=== PATIENT | male | born 1960 | race African-American/Black ===

== ENCOUNTER 2020-08-04 10:42 | Emergency (ER) | payer OTHER ==
[~2020-08-04] VITALS: Ht 175.3 cm; Wt 76.2 kg
--- OUTSIDE RECORDS SUMMARY | 2020-08-04 11:06 | XMS REPORT | Continuity of Care Document ---
Author Author [facility] t Organization [facility] Address [address] [place] [address] Phone Unavailable Care Team Providers Care Burr Bench Operator Name Role Phone ELISSA SIERRA Unavailable TALON DUMONT Attphys Unavailable ROOTTaz Attphys Unavailable TALON DUMONT Admphys Unavailable ROOTTaz Admphys Unavailable Payers Payer Name Policy Type Policy Number Effective Date Expiration Date S ource Problems This patient has no known problems. Allergies, Adverse Reactions, Alerts Allergy Name Allergy Type Status Severity Reaction(s) Onset Date Inacti ve Date Treating Clinician Comments Source peanut FA Active [place] 2020-06-11 00:00:00 [facility] aspirin DA Active [place] 2020-06-11 00:00:00 [facility] peanut FA Active [place] 2017-06-05 00:00:00 [facility] aspirin DA Active [place] 2017-06-05 00:00:00 [facility] Social History Social Habit Start Date Stop Date Quantity Comments Source Sex Assigned At [facility] Medications This patient has no known medications. Procedures This patient has no known procedures. Encounters Start Date/Time End Date/Time [facility] ID Source 2019-06-12 08:32:41 Outpatient [facility] [id number] [facility] 2017-04-22 14:01:00 Inpatient [facility] MED [id number] [facility] 2019-08-05 01:13:00 2019-08-05 01:13:00 Emergency E [facility] [id number] [facility] 2019-05-25 17:21:00 2019-05-25 17:21:00 Emergency E [facility] [id number] [facility] 2019-04-24 11:58:00 2019-04-24 11:58:00 Outpatient [facility] [id number] [facility] Results Test Description Test Time Test Comments Results Result Comments Source - CT ABD PELVIS W/CONT 2020-06-12 00:01:00 Nam e: CHASITY GREER [facility] : 1960 Age/S: 59 / M [address] [facility] Unit #: [id number] Loc: [place] [address] Phys: Bridgette Virk Acct: [id number] Dis Date: Status: REG ER PHONE #: [phone] Exam Date: 06/11/2020 2345 FAX #: [phone] Reason: abd pain, r/o appendicitis EXAMS: CPT CODE: [id number] CT ABD PELVIS W/CONT [id number] AFTER HOURS SERVICE ON: 06/11/2020 11:[address] Scan of the Abdomen and Pelvis With Contrast Location Code M12 History: abd pain, r/o appendicitis Technique: Axial and reconstructed coronal scans were performed on a helical scanner post IV contrast. Delayed scans were also obtained. One or more of the following dose reduction techniques were used: Automated exposure control, adjustment of the mA and/or kV according to patient size, and/or utilization of iterative reconstruction technique. Findings: LIVER: There is a too small to characterize hypodensity in the right hepatic lobe without significant change from 06/05/2017. Liver is otherwise unremarkable. GALLBLADDER/BILIARY: No significant findings. PANCREAS: No significant findings. SPLEEN: No significant findings. ADRENALS: No significant findings. KIDNEYS: No hydronephrosis. BLADDER: No significant findings. GASTROINTESTINAL: Stool seen in the colon. Small bowel loops are within normal limits. There is no bowel obstruction or free air. The appendix is unremarkable. IMPRESSION: No acute findings in the abdomen or pelvis. at 0001 Reported and signed by: Amalia Hinkle M.D. PAGE 1 Signed Report (CONTINUED) Name: CHASITY GREER [facility] : 1960 Age/S: 59 / M [address] Unit #: [id number] Loc: [place] [address] Phys: Bridgette Virk DO Acct: [id number] Dis Date: Status: REG ER PHONE #: [phone] Exam Date: 06/11/2020 2346 FAX #: [phone] Reason: abd pain, r/o appendicitis EXAMS: CPT CODE: [id number] CT ABD PELVIS W/CONT 11234 <Continued> CC: Bridgette Virk DO Technologist:Riya Del Toro RT(R),CT CTDI: DLP: Trnscb Date/Time: 06/12/2020 (0001) [email or web address] Orig Print D/T: S: 06/12/2020 (0004) PAGE 2 Signed Report CBC W/O DIFF 2020-06-11 23:20:00 Test Item WHITE BLOOD CELL (test code = WBC) 8.5 K/mm3 4.5-12.5 N RED BLOOD CELL (test code = RBC) 4.88 mill/mm3 4.0-5.8 N HEMOGLOBIN (test code = HGB) 13.8 gram/dL 13.0-17.5 N HEMATOCRIT (test code = HCT) 43.4 % 42.0-52.0 N MEAN CELL VOLUME (test code = MCV) 88.9 fL 80-98 N MEAN CELL HGB (test code = MCH) 28.3 picogram 27.0-33.0 N MEAN CELL HGB CONCETRATION (test code = MCHC) 31.8 gram/dL 33.0-36. 0 L RED CELL DISTRIBUTION WIDTH (test code = RDW) 13.9 % 11.6-16. 2 N PLATELET COUNT (test code = PLT) 285 K/mm3 150-450 N MEAN PLATELET VOLUME (test code = MPV) 9.3 fL 6.7-11.0 N URINALYSIS [id number] 23:04:00* Test Item Value Reference Range Interpretation Comments UA COLOR (test code = COLU) YELLOW YELLOW UA APPEARANCE (test code = APPU) CLEAR CLEAR UA GLUCOSE DIPSTICK (test code = DGLUU) NEGATIVE mg/dL NEGATIVE UA BILIRUBIN DIPSTICK (test code = BILU) NEGATIVE mg/dL NEGATIVE UA KETONE DIPSTICK (test code = KETU) NEGATIVE mg/dL NEGATIVE UA SPECIFIC GRAVITY (test code = SGU) 1.024 1.001-1.035 UA BLOOD DIPSTICK (test code = DEREK) Negative mg/dL NEGATIVE UA PH DIPSTICK (test code = CLARY) 6.5 5.0-8.0 UA PROTEIN DIPSTICK (test code = PROU) NEGATIVE mg/dL NEGATIVE UA UROBILINIOGEN DIPSTICK (test code = URO) Normal mg/dL NEGATIVE UA NITRITE DIPSTICK (test code = OTF) NEGATIVE NEGATIVE UA LEUKOCYTE ESTERASE W REFLEX (test code = LEUUR) 25 [place]/uL (Trace) [place]/uL NEGATIVE A UA WBC (test code = WBCU) 0-5 per HPF 0-5 UA RBC (test code = RBCU) 0-2 #/HPF 0-5 UA EPITHELIAL CELLS (test code = EPIU) Few (2-5/hpf) per HPF FEW UA BACTERIA (test code = BACU) NONE SEEN #/HPF NONE Urine Source? Clean [id number] 23:00:00* Test Item Value Reference Range Interpretation Comments TROPONIN-I (test code = TROPI) <0.015 ng/mL 0-0.045 N BASIC METABOLIC [id number] 22:58:00* Test Item Value Reference Range Interpretation Comments SODIUM (test code = NA) 138 mmol/L 136-145 N POTASSIUM (test code = K) 4.1 mmol/L 3.5-5.1 N CHLORIDE (test code = CL) 101.5 mmol/L 98-107 N CARBON DIOXIDE (test code = CO2) 29.0 mmol/L 21-32 N ANION GAP (test code = GAP) 11.6 10-20 N GLUCOSE (test code = GLU) 81 mg/dL 74-106 N BLOOD UREA NITROGEN (test code = BUN) 18 mg/dL 7-18 N GLOMERULAR FILTRATION RATE (test code = GFR) > 60 mL/min >=60 Estimated GFR by using Modified MDRD formula.Chronic kidney disease is defined as either kidney damageor GFR <60 mL/min/1.73 m2 for >3 months. CREATININE (test code = CREAT) 1.30 mg/dL 0.7-1.3 N BUN/CREATININE RATIO (test code = BUN/CREA) 13.8 10-20 N CALCIUM (test code = CA) 10.0 mg/dL 8.5-10.1 N HEPATIC FUNCTION [id number] 22:58:00* Test Item Value Reference Range Interpretation Comments TOTAL PROTEIN (test code = PROT) 8.6 gram/dL 6.4-8.2 H ALBUMIN (test code = ALB) 4.7 g/dL 3.4-5.0 N GLOBULIN (test code = GLOB) 3.9 gram/dL 2.7-4.2 N ALBUMIN/GLOBULIN RATIO (test code = A/G) 1.2 0.75-1.50 N BILIRUBIN TOTAL (test code = BILT) 0.40 mg/dL 0.0-1.0 N BILIRUBIN DIRECT (test code = BILD) 0.15 mg/dL 0.0-0.20 N SGOT/AST (test code = AST) 29 IUnit/L 15-37 N SGPT/ALT (test code = ALT) 27 IUnit/L 12-78 N ALKALINE PHOSPHATASE TOTAL (test code = ALKP) 73 IUnit/L 45-117 N Note change in reference range due to change in reagent. [id number] 22:58:00* Test Item Value Reference Range Interpretation Comments LIPASE (test code = LIP) 115 U/L 73.0-393.0 N RPR [id number] 10:59:28* Test Item Value Reference Range Interpretation Comments RPR Qual (test code = RPR Qual) Non-Reactive Non-Reactive Reactive Control (test code = Reactive Control) Reactive Weak Reactive Control (test code = Weak Reactive Control) Weak Reac tive Non-Reactive Control (test code = Non-Reactive Control) Non-Reactiv e Lot # (test code = Lot #) [id number] N Expiration Dt (test code = Expiration Dt) 07-27-2020 N Basic Metabolic [id number] 08:31:44* Test Item Value Reference Range Interpretation Comments Sodium Level (test code = Sodium Level) 138.0 mmol/L 135.0-145.0 Potassium Level (test code = Potassium Level) 4.2 mmol/L 3.5-5.1 Chloride Level (test code = Chloride Level) 104 mmol/L 98-105 CO2 (test code = CO2) 23 mmol/L 22-29 Anion Gap (test code = Anion Gap) 11 mmol/L 7-16 BUN (test code = BUN) 18.80 mg/dL 6.00-20.00 Creatinine Level (test code = Creatinine Level) 1.20 mg/dL 0.70-1 .20 BUN/Creat Ratio (test code = BUN/Creat Ratio) 16 N Glucose Level (test code = Glucose Level) 104 mg/dL 70-115 Calcium Level (test code = Calcium Level) 9.4 mg/dL 8.3-10.5 Basic Metabolic [id number] 08:31:44* Test Item Value Reference Range Interpretation Comments Sodium Level (test code = Sodium Level) 138.0 mmol/L 135.0-145.0 Potassium Level (test code = Potassium Level) 4.2 mmol/L 3.5-5.1 Chloride Level (test code = Chloride Level) 104 mmol/L 98-105 CO2 (test code = CO2) 23 mmol/L 22-29 Anion Gap (test code = Anion Gap) 11 mmol/L 7-16 BUN (test code = BUN) 18.80 mg/dL 6.00-20.00 Creatinine Level (test code = Creatinine Level) 1.20 mg/dL 0.70-1 .20 BUN/Creat Ratio (test code = BUN/Creat Ratio) 16 N Glucose Level (test code = Glucose Level) 104 mg/dL 70-115 Calcium Level (test code = Calcium Level) 9.4 mg/dL 8.3-10.5 eGFR AA (test code = eGFR AA) >60 mL/min/1.73 m2 N eGFR (estimated Glomerular Filtration Rate) is an estimated value, calculated from the patient's serum creatinine using the MDRD equation. It is NOT the patient's actual GFR. The eGFR provides a more clinically useful measure of kidney disease than serum creatinine alone.This calculation takes sex and race into account, if the information is provided. If the race is not provided, and the patient is -[place], multiply by 1.212. If sex is not provided, and the patient is female, multiply by 0.742. Results for patients <18 years of age have not been validated by the MDRD study and should be interpreted with caution. eGFR Result Interpretation:eGFR > or = 60 is in the Normal RangeeGFR < 60 may mean kidney diseaseeGFR < 15 may mean kidney failure Ranges recommended by the National Kidney Foundation, http://nkdep.nih.gov Basic Metabolic [id number] 08:31:44* Test Item Value Reference Range Interpretation Comments Sodium Level (test code = Sodium Level) 138.0 mmol/L 135.0-145.0 Potassium Level (test code = Potassium Level) 4.2 mmol/L 3.5-5.1 Chloride Level (test code = Chloride Level) 104 mmol/L 98-105 CO2 (test code = CO2) 23 mmol/L 22-29 Anion Gap (test code = Anion Gap) 11 mmol/L 7-16 BUN (test code = BUN) 18.80 mg/dL 6.00-20.00 Creatinine Level (test code = Creatinine Level) 1.20 mg/dL 0.70-1 .20 BUN/Creat Ratio (test code = BUN/Creat Ratio) 16 N Glucose Level (test code = Glucose Level) 104 mg/dL 70-115 Calcium Level (test code = Calcium Level) 9.4 mg/dL 8.3-10.5 eGFR AA (test code = eGFR AA) >60 mL/min/1.73 m2 N eGFR (estimated Glomerular Filtration Rate) is an estimated value, calculated from the patient's serum creatinine using the MDRD equation. It is NOT the patient's actual GFR. The eGFR provides a more clinically useful measure of kidney disease than serum creatinine alone.This calculation takes sex and race into account, if the information is provided. If the race is not provided, and the patient is -[place], multiply by 1.212. If sex is not provided, and the patient is female, multiply by 0.742. Results for patients <18 years of age have not been validated by the MDRD study and should be interpreted with caution. eGFR Result Interpretation:eGFR > or = 60 is in the Normal RangeeGFR < 60 may mean kidney diseaseeGFR < 15 may mean kidney failure Ranges recommended by the National Kidney Foundation, http://nkdep.nih.gov eGFR Non-AA (test code = eGFR Non-AA) >60.00 mL/min/1.73 m2 N eGFR (estimated Glomerular Filtration Rate) is an estimated value, calculated from the patient's serum creatinine using the MDRD equation. It is NOT the patient's actual GFR. The eGFR provides a more clinically useful measure of kidney disease than serum creatinine alone.This calculation takes sex and race into account, if the information is provided. If the race is not provided, and the patient is -[place], multiply by 1.212. If sex is not provided, and the patient is female, multiply by 0.742. Results for patients <18 years of age have not been validated by the MDRD study and should be interpreted with caution. eGFR Result Interpretation:eGFR > or = 60 is in the Normal RangeeGFR < 60 may mean kidney diseaseeGFR < 15 may mean kidney failure Ranges recommended by the National Kidney Foundation, http://nkdep.nih.gov Hemoglobin [id number] 12:06:44* Test Item Value Reference Range Interpretation Comments Hemoglobin A1c (test code = Hemoglobin A1c) 5.3 % 4.8-5.9 Non Diabetic 4.8- 5.9%Diabetic <7.0% Thyroid Stimulating [id number] 10:49:20* Test Item Value Reference Range Interpretation Comments TSH (test code = TSH) 0.745 mIU/mL 0.270-4.200 Lipid [id number] 10:29:25* Test Item Value Reference Range Interpretation Comments Cholesterol Total (test code = Cholesterol Total) 192 mg/dL 0-20 0 RISK OF HEART DISEASEPublished by [place] Heart Association Analyte Optimal Borderline Increased RiskCHOL <200 200-239 >240TRIG <150 150-199 >200HDL Male >60 <40HDL Female >60 <50LDL <100 130-159 >160LDL Near optimal is 100-129 Triglycerides (test code = Triglycerides) 51 mg/dL 9-200 HDL (test code = HDL) 77 mg/dL 40-60 H LDL (test code = LDL) 105 mg/dL 0-130 The eq uation being used in this calculation is LDL = (Chol - HDL) - (Trig / 5) VLDL (test code = VLDL) 10 mg/dL 5-40 The equation being used in this calculation is VLDL = Trig / 5 Chol/HDL (test code = Chol/HDL) 2.5 ratio 0.0-5.0 LDL/HDL Ratio (test code = LDL/HDL Ratio) 1 N The equation being used in this calculation is LDL/HDL Ratio=LDL Calc/HDL Chol Urine Drug [id number] 19:23:28* Test Item Value Reference Range Interpretation Comments Amphetamine Screen Ur (test code = Amphetamine Screen Ur) Negative Negative Barbiturate Screen Ur (test code = Barbiturate Screen Ur) Negative Negative Benzodiazepines Ur (test code = Benzodiazepines Ur) Negative Ne gative Cocaine Screen Ur (test code = Cocaine Screen Ur) POSITIVE Nega tive A U Methadone Scr (test code = U Methadone Scr) Negative Negative Opiate Screen Ur (test code = Opiate Screen Ur) POSITIVE Negati ve A U PCP Scrn (test code = U PCP Scrn) Negative Negative Cannabinoid Screen Ur (test code = Cannabinoid Screen Ur) Negative Negative U TCA (test code = U TCA) Negative Negative Th e results of all drug screen tests are only preliminary. Clinical consideration and professional judgment should be applied to any drug of abuse test result, particularly when preliminary positive results are obtained. Please order a separate confirmatory test if desired. Alcohol [id number] 19:16:18* Test Item Value Reference Range Interpretation Comments Ethanol Level (test code = Ethanol Level) <0.00 g/dL 0.00-0.01 Intoxicated 0.080 g/dL or more Ethanol Inst (test code = Ethanol Inst) <0 N Comprehensive Metabolic [id number] 19:16:17* Test Item Value Reference Range Interpretation Comments Sodium Level (test code = Sodium Level) 142.0 mmol/L 135.0-145.0 Potassium Level (test code = Potassium Level) 4.7 mmol/L 3.5-5.1 Chloride Level (test code = Chloride Level) 104 mmol/L 98-105 CO2 (test code = CO2) 25 mmol/L 22-29 Anion Gap (test code = Anion Gap) 13 mmol/L 7-16 BUN (test code = BUN) 16.90 mg/dL 6.00-20.00 Creatinine Level (test code = Creatinine Level) 1.30 mg/dL 0.70-1 .20 H BUN/Creat Ratio (test code = BUN/Creat Ratio) 13 N Glucose Level (test code = Glucose Level) 102 mg/dL 70-115 Calcium Level (test code = Calcium Level) 10.7 mg/dL 8.3-10.5 H Alk Phos (test code = Alk Phos) 55 U/L 40-129 Bilirubin Total (test code = Bilirubin Total) 0.5 mg/dL 0.1-0.9 Albumin Level (test code = Albumin Level) 5.1 g/dL 3.5-5.2 Protein Total (test code = Protein Total) 7.6 g/dL 6.4-8.3 ALT (test code = ALT) 28 U/L 1-41 AST (test code = AST) 52 U/L 1-40 H Globulin (test code = Globulin) 2.5 g/dL 2.9-3.1 L A/G Ratio (test code = A/G Ratio) 2.0 ratio N Comprehensive Metabolic [id number] 19:16:17* Test Item Value Reference Range Interpretation Comments Sodium Level (test code = Sodium Level) 142.0 mmol/L 135.0-145.0 Potassium Level (test code = Potassium Level) 4.7 mmol/L 3.5-5.1 Chloride Level (test code = Chloride Level) 104 mmol/L 98-105 CO2 (test code = CO2) 25 mmol/L 22-29 Anion Gap (test code = Anion Gap) 13 mmol/L 7-16 BUN (test code = BUN) 16.90 mg/dL 6.00-20.00 Creatinine Level (test code = Creatinine Level) 1.30 mg/dL 0.70-1 .20 H BUN/Creat Ratio (test code = BUN/Creat Ratio) 13 N Glucose Level (test code = Glucose Level) 102 mg/dL 70-115 Calcium Level (test code = Calcium Level) 10.7 mg/dL 8.3-10.5 H Alk Phos (test code = Alk Phos) 55 U/L 40-129 Bilirubin Total (test code = Bilirubin Total) 0.5 mg/dL 0.1-0.9 Albumin Level (test code = Albumin Level) 5.1 g/dL 3.5-5.2 Protein Total (test code = Protein Total) 7.6 g/dL 6.4-8.3 ALT (test code = ALT) 28 U/L 1-41 AST (test code = AST) 52 U/L 1-40 H Globulin (test code = Globulin) 2.5 g/dL 2.9-3.1 L A/G Ratio (test code = A/G Ratio) 2.0 ratio N eGFR AA (test code = eGFR AA) >60 mL/min/1.73 m2 N eGFR (estimated Glomerular Filtration Rate) is an estimated value, calculated from the patient's serum creatinine using the MDRD equation. It is NOT the patient's actual GFR. The eGFR provides a more clinically useful measure of kidney disease than serum creatinine alone.This calculation takes sex and race into account, if the information is provided. If the race is not provided, and the patient is -[place], multiply by 1.212. If sex is not provided, and the patient is female, multiply by 0.742. Results for patients <18 years of age have not been validated by the MDRD study and should be interpreted with caution. eGFR Result Interpretation:eGFR > or = 60 is in the Normal RangeeGFR < 60 may mean kidney diseaseeGFR < 15 may mean kidney failure Ranges recommended by the National Kidney Foundation, http://nkdep.nih.gov Comprehensive Metabolic [id number] 19:16:17* Test Item Value Reference Range Interpretation Comments Sodium Level (test code = Sodium Level) 142.0 mmol/L 135.0-145.0 Potassium Level (test code = Potassium Level) 4.7 mmol/L 3.5-5.1 Chloride Level (test code = Chloride Level) 104 mmol/L 98-105 CO2 (test code = CO2) 25 mmol/L 22-29 Anion Gap (test code = Anion Gap) 13 mmol/L 7-16 BUN (test code = BUN) 16.90 mg/dL 6.00-20.00 Creatinine Level (test code = Creatinine Level) 1.30 mg/dL 0.70-1 .20 H BUN/Creat Ratio (test code = BUN/Creat Ratio) 13 N Glucose Level (test code = Glucose Level) 102 mg/dL 70-115 Calcium Level (test code = Calcium Level) 10.7 mg/dL 8.3-10.5 H Alk Phos (test code = Alk Phos) 55 U/L 40-129 Bilirubin Total (test code = Bilirubin Total) 0.5 mg/dL 0.1-0.9 Albumin Level (test code = Albumin Level) 5.1 g/dL 3.5-5.2 Protein Total (test code = Protein Total) 7.6 g/dL 6.4-8.3 ALT (test code = ALT) 28 U/L 1-41 AST (test code = AST) 52 U/L 1-40 H Globulin (test code = Globulin) 2.5 g/dL 2.9-3.1 L A/G Ratio (test code = A/G Ratio) 2.0 ratio N eGFR AA (test code = eGFR AA) >60 mL/min/1.73 m2 N eGFR (estimated Glomerular Filtration Rate) is an estimated value, calculated from the patient's serum creatinine using the MDRD equation. It is NOT the patient's actual GFR. The eGFR provides a more clinically useful measure of kidney disease than serum creatinine alone.This calculation takes sex and race into account, if the information is provided. If the race is not provided, and the patient is -[place], multiply by 1.212. If sex is not provided, and the patient is female, multiply by 0.742. Results for patients <18 years of age have not been validated by the MDRD study and should be interpreted with caution. eGFR Result Interpretation:eGFR > or = 60 is in the Normal RangeeGFR < 60 may mean kidney diseaseeGFR < 15 may mean kidney failure Ranges recommended by the National Kidney Foundation, http://nkdep.nih.gov eGFR Non-AA (test code = eGFR Non-AA) 56.31 mL/min/1.73 m2 N eGFR (estimated Glomerular Filtration Rate) is an estimated value, calculated from the patient's serum creatinine using the MDRD equation. It is NOT the patient's actual GFR. The eGFR provides a more clinically useful measure of kidney disease than serum creatinine alone.This calculation takes sex and race into account, if the information is provided. If the race is not provided, and the patient is -[place], multiply by 1.212. If sex is not provided, and the patient is female, multiply by 0.742. Results for patients <18 years of age have not been validated by the MDRD study and should be interpreted with caution. eGFR Result Interpretation:eGFR > or = 60 is in the Normal RangeeGFR < 60 may mean kidney diseaseeGFR < 15 may mean kidney failure Ranges recommended by the National Kidney Foundation, http://nkdep.nih.gov Complete Blood Count with [id number] 18:20:53* Test Item Value Reference Range Interpretation Comments WBC (test code = WBC) 9.9 x10 4.4-10.5 RBC (test code = RBC) 4.31 x10 4.10-5.70 Hgb (test code = Hgb) 12.5 g/dL 13.4-17.4 L Hct (test code = Hct) 37.7 % 38.7-52.0 L MCV (test code = MCV) 87.50 fL 80.00-100.00 MCHC (test code = MCHC) 33.20 g/dL 32.00-37.50 RDW CV (test code = RDW CV) 14.1 % 11.5-14.5 MCH (test code = MCH) 29.0 pg 27.0-32.5 Platelets (test code = Platelets) 263.0 x10 140.0-440.0 MPV (test code = MPV) 9.3 fL N Slide Review (test code = Slide Review) Auto Auto Result created by [id number] nRBC (test code = nRBC) 0 N NRBC Abs (test code = NRBC Abs) 0.00 x10 N IPF (test code = IPF) 0 % N Automated [id number] 18:20:53* Test Item Value Reference Range Interpretation Comments Neutro Auto (test code = Neutro Auto) 71.8 % 36.0-70.0 H Lymph Auto (test code = Lymph Auto) 18.1 % 12.0-44.0 [place] Auto (test code = [place] Auto) 9.7 % 0.0-11.0 Eos, Auto (test code = Eos, Auto) 0.0 % 0.0-7.0 Basophil Auto (test code = Basophil Auto) 0.2 % 0.0-2.0 Neutro Absolute (test code = Neutro Absolute) 7.1 x10 1.6-7.4 Lymph Absolute (test code = Lymph Absolute) 1.80 x10 .50-4.60 [place] Absolute (test code = [place] Absolute) .96 x10 .00-1.20 Eos Absolute (test code = Eos Absolute) 0.00 x10 0.00-0.74 Baso Absolute (test code = Baso Absolute) 0.02 x10 0.00-0.21 IG [id number] 18:20:53* Test Item Value Reference Range Interpretation Comments IG (test code = IG) 0.2 % 0.0-5.0 IG Abs (test code = IG Abs) [address] Abdomen and Pelvis w/ [id number] 12:58:04Patient: CHASITY GREER Date/Time01/30/2019 12:49 CDTReason for ExamAbdominal painReportCT ABDOMEN AND PELVIS WITH CONTRASTHISTORY: Abdominal painCOMPARISON: None.TECHNIQUE: Axial images of the abdomen and pelvis were obtained following the administration of 100 mL Omnipaque 300 intravenous contrast. Coronal and sagittal reformats were prov ided. One or more of the following dose reduction techniques were used: Automate d exposure control, adjustment of the mA and/or kV according to patient size, an d/or utilization of iterative reconstruction technique.FINDINGS:Lower thorax: Un remarkable.Hepatobiliary: Unremarkable. No intra or extrahepatic biliary ductal dilatation is identified.Gallbladder: No calcified gallstones are identified. The gallbladder wall appears normal.Spleen: Unremarkable.Pancreas: Unremarkabl e.Adrenals: Unremarkable.Kidneys/ureters: Unremarkable.Bowel: There is moderat e thickening of the gastric wall. The jejunal loops also show mild wall thicken ing. The ileal bowel loops are unremarkable. No dilated loops of small bowel a re seen. The appendix is normal. The left hemicolon is relatively collapsed.Pel mp organs/bladder: The urinary bladder wall is mildly thickened. The prostate gland is normal in size.Vessels: Mild atherosclerotic calcification is seen in the aorta and iliac arteries.Lymph nodes: No lymphadenopathy.Peritoneum/Retroper itoneum: No ascites or free air is identified.Bones/soft tissues: Mild multileve l degenerative disc disease noted.IMPRESSION:The stomach, jejunum, and left delbert colon show mild diffuse wall thickening. Differential considerations include ga stroenteritis/colitis or inflammatory bowel disease. Please correlate with clin ical symptoms.Exam Date/Time01/30/2019 12:49 CDTReportLOCATION: R16 Final Dictated by: MD Dank, Reggie FDictated DT/TM: 01/30/2019 12:51 pmSigned b y: MD Weems Adam FSigned (Electronic Signature): 01/30/2019 12:58 pmXR Chest 1 View [id number] 11:17:35Patient: HCASITY GREER Date/Time09/06/2018 10:14 CSTReason for ExamChest painReportCHEST 1 VIEWCLINICAL INFORMATION: Chest painCOMPARISON: June 24, 2018FINDINGS:The lungs are well-expanded and clear. No airspace consolidation is seen. No pneumothorax or pleural effusion is present. The cardiac silhouette is normal in size. The bones are grossly intact. Mild degenerative changes are noted in the right shoulder.IMPRESSION:No acute cardiopulmonary finding.LOCATION: R16 Final Dictated by: MD Weems Adam FDictnkechi DT/TM: 09/06/2018 11:17 amSigned by: MD Weems Adam FSigned (Electronic Signature): 09/06/2018 11:17 amXR Chest 1 View Frontal 2018-06-24 08:34:50Patient: CHASITY GREER Date/Time06/24/2018 08:28 CDTReason for ExamCHF (Congestive Heart Failure), knownReportXR Chest 1 View FrontalLOCATION: [id number]: chest radiograph 01/21/2017INDICATION: CHF (Congestive Heart Failure), knownDISCUSSION:A single portable chest radiograph was submitted for interpretation.Lines/tubes: None.The lungs are well-inflated and grossly clear.The cardiac silhouette is within normal limits.There are no acute osseous abnormalities.Small screws in the left humeral head are partially visualized.IMPRESSION:No acute cardiopulmonary abnormalities. Final Dictated by: MD Mcconnell Alfred EDictated DT/TM: 06/24/2018 8:33 amSigned by: MD Mcconnell Alfred ESigned (Electronic Signature): 06/24/2018 8:34 amComprehensive Metabolic [id number] 18:38:00* Test Item Value Reference Range Interpretation Comments Sodium (test code = NA) 142 mmol/L 135-145 N Potassium (test code = K) 3.8 mmol/L 3.5-5.1 N Chloride (test code = CL) 102 mmol/L 98-105 N Carbon Dioxide (test code = CO2) 28 mmol/L 22-29 N Glucose (test code = GLU) 69 mg/dL 70-115 L Blood Urea Nitrogen (test code = BUN) 27 mg/dL 6-20 H Creatinine (test code = CREAT) 1.6 mg/dL 0.7-1.2 H Calcium (test code = CA) 10.0 mg/dL 8.3-10.5 N Prot Total (test code = TP) 7.4 g/dL 6.4-8.3 N Albumin (test code = ALB) 4.7 g/dL 3.5-5.2 N A/G Ratio (test code = AGRATIO) 1.7 Ratio Globulin (test code = GLOB) 2.7 2.9-3.1 L Bili Total (test code = TBIL) 0.9 mg/dL 0.1-0.9 N Alk Phos (test code = APHOS) 65 U/L 40-129 N AST (test code = AST) 44 U/L 1-40 H ALT (test code = ALT) 22 U/L 1-41 N BUN/Creatinine Ratio (test code = BCRATIO) 16.9 Anion Gap (test code = AGAP) 12 mmol/L 7-16 N Estimated GFR (test code = GFR) 57 mL/min/1.73m2 eGFR (estimated Glomerular Filtration Rate) is an estimated value,calculated from the patient's serum creatinine using the MDRD equation.It is NOT the patient's actual GFR. The eGFR provides a more clinicallyuseful measure of kidney disease than serum creatinine alone.This calculation takes sex and race into account, if the informationis provided. If the race is not provided, and the patient isAfrican-Central African, multiply by 1.212. If sex is not provided, and thepatient is female, multiply by 0.742. Results for patients <18 years ofage have not been validated by the MDRD study and should be interpretedwith caution.eGFR Result Interpretation:eGFR > or = 60 is in the Normal RangeeGFR < 60 may mean kidney diseaseeGFR < 15 may mean kidney failureRanges recommended by the National Kidney Found ation,http://nkdep.nih.gov [id number] 18:37:00* Test Item Value Reference Range Interpretation Comments Amphetamine (test code = AMPH) POSITIVE Negative A For diagnostic purposes only, positive results should always be assessedin conjunctionwith the patient's medical history,clinical examination and otherfindings.To fulfill legal requirements, a more specific alternate chemical methodmust be used inorder to obtain a Confirmed analytical result. GC/MS is the preferred confirmatory method. Barbiturates (test code = CHRISTINE) Negative Negative N Benzodiazepine (test code = QUEENIE) Negative Negative N Cocaine (test code = COCA) POSITIVE Negative A Methadone (test code = MTHD) Negative Negative N Opiates (test code = OPIA) Negative Negative N PCP (test code = PCP) Negative Negative N Propoxyphene (test code = PROPOX) Negative Negative N THC (test code = THC) POSITIVE Negative A Alcohol, Urine (test code = ETOHU) <0.01 g/dL 0.00-0.01 N CBC with [id number] 18:17:00* Test Item Value Reference Range Interpretation Comments WBC (test code = WBC) 7.6 K/cumm 4.4-10.5 N RBC (test code = RBC) 4.86 M/cumm 4.10-5.70 N Hemoglobin (test code = HGB) 13.7 gm/dL 13.4-17.4 N Hematocrit (test code = HCT) 42.6 % 38.7-52.0 N MCV (test code = MCV) 87.6 fL 80-100 N MCH (test code = MCH) 28.1 pg 27.0-32.5 N MCHC (test code = MCHC) 32.1 g/dL 32.0-37.5 N RDW (test code = RDW) 14.5 % 11.5-14.5 N Platelet Count (test code = PLTCT) 267 K/cumm 140-440 N MPV (test code = MPV) 6.7 fL Diff Method (test code = DIFFM) Auto Neutrophil (test code = NEUT) 49.8 % 36-70 N Lymphocyte (test code = LYMPH) 38.2 % 12-44 N Monocyte (test code = MONO) 8.9 % 0-11 N Eosinophil (test code = EOS) 2.9 % 0-7 N Basophil (test code = BASO) 0.3 % 0-2 N Neutro Abs (test code = ANEUT) 3.8 K/cumm 1.6-7.4 N Lymph Abs (test code = ALYMPH) 2.9 K/cumm 0.5-4.6 N [place] Abs (test code = AMONO) 0.7 K/cumm 0.0-1.2 N Eos Abs (test code = AEOS) 0.22 K/cumm 0.00-0.74 N Baso Abs (test code = ABASO) 0.0 K/cumm 0.00-0.21 N Urinalysis [id number] 18:14:00* Test Item Value Reference Range Interpretation Comments Color (test code = COLOR) [place] Yellow,Straw,Pl yellow A Clarity (test code = CLAR) Clear Clear N Specific [place] (test code = SPGR) 1.034 1.001-1.035 N pH (test code = PH) 6.5 5.0-9.0 N Ketone (test code = KET) 15 mg/dL Negative A Glucose (test code = GLUCUR) Negative mg/dL Negative N Protein (test code = PROT) 25 mg/dL Negative A Bilirubin (test code = BILI) See IctoTest mg/dL Negative A Occult Blood (test code = UDOB) Negative Negative N Urobilinogen (test code = UROB) 1.0 mg/dL 0.2-1.0 N Nitrite (test code = NIT) Negative Negative N Leuk Esterase (test code = LEUK) Small Negative A Ictotest (test code = ICTOTEST) Confirmed Negative Negative,Conf irmed Negative N Micros Exam (test code = MEXAM) Indicated Epithelial Cells (test code = EPI) 0-2 /LPF 0-30 A WBC, Urine (test code = UWBC) 0-2 /HPF 0-5 A RBC, Urine (test code = URBC) None Seen /HPF 0-5 A Mucous, Urine (test code = UMUC) Few /HPF Bacteria (test code = BACT) None /HPF RPR, [id number] 03:31:00* Test Item Value Reference Range Interpretation Comments RPR (test code = RPR) Non-Reactive Non-Reactive N [id number] 12:31:00* Test Item Value Reference Range Interpretation Comments Amphetamine (test code = AMPH) POSITIVE Negative A For diagnostic purposes only, positive results should always be assessedin conjunctionwith the patient's medical history,clinical examination and otherfindings.To fulfill legal requirements, a more specific alternate chemical methodmust be used inorder to obtain a Confirmed analytical result. GC/MS is the preferred confirmatory method. Barbiturates (test code = CHRISTINE) Negative Negative N Benzodiazepine (test code = QUEENIE) Negative Negative N Cocaine (test code = COCA) POSITIVE Negative A Methadone (test code = MTHD) Negative Negative N Opiates (test code = OPIA) Negative Negative N PCP (test code = PCP) Negative Negative N Propoxyphene (test code = PROPOX) Negative Negative N THC (test code = THC) Negative Negative N Alcohol, Urine (test code = ETOHU) <0.01 g/dL 0.00-0.01 N Thyroid Stimulating Hormone (TSH)2017-04-24 11:48:00* Test Item Value Reference Range Interpretation Comments TSH (test code = TSH) 1.88 mIU/mL 0.270-4.200 N Lipid [id number] 11:27:00* Test Item Value Reference Range Interpretation Comments Cholesterol (test code = CHOL) 201 mg/dL 0-200 H Triglycerides (test code = TRIG) 88 mg/dL 9-200 N HDL (test code = HDL) 67 mg/dL 40-60 H Chol/HDL (test code = CHOLPHDL) 3.0 Ratio 0.0-5.0 N LDL, Calculated (test code = LDLC) 116 0-130 N (NOTE)RISK OF HEART DISEASEPublished by Central African Heart AssociationAnalyte Optimal Boderline Increased RiskCHOL <200 200-239 >240TRIG <150 150-199 >200HDL Male: >60 <40HDL Female: >60 <50LDL <100 130-159 >160LDL NEAR OPTIMAL IS 100-129 VLDL (test code = VLDL) 18 mg/dL 5-40 N LDL/HDL (test code = LDLPHDL) 2 Comprehensive Metabolic [id number] 10:11:00* Test Item Value Reference Range Interpretation Comments Sodium (test code = NA) 140 mmol/L 135-145 N Potassium (test code = K) 4.2 mmol/L 3.5-5.1 N Chloride (test code = CL) 105 mmol/L 98-105 N Carbon Dioxide (test code = CO2) 23 mmol/L 22-29 N Glucose (test code = GLU) 86 mg/dL 70-115 N Blood Urea Nitrogen (test code = BUN) 17 mg/dL 6-20 N Creatinine (test code = CREAT) 1.3 mg/dL 0.7-1.2 H Calcium (test code = CA) 10.0 mg/dL 8.3-10.5 N Prot Total (test code = TP) 7.2 g/dL 6.4-8.3 N Albumin (test code = ALB) 4.5 g/dL 3.5-5.2 N A/G Ratio (test code = AGRATIO) 1.7 Ratio Globulin (test code = GLOB) 2.7 2.9-3.1 L Bili Total (test code = TBIL) 0.3 mg/dL 0.1-0.9 N Alk Phos (test code = APHOS) 55 U/L 40-129 N AST (test code = AST) 47 U/L 1-40 H ALT (test code = ALT) 26 U/L 1-41 N BUN/Creatinine Ratio (test code = BCRATIO) 13.1 Anion Gap (test code = AGAP) 12 mmol/L 7-16 N Estimated GFR (test code = GFR) >60 mL/min/1.73m2 eGFR (estimated Glomerular Filtration Rate) is an estimated value,calculated from the patient's serum creatinine using the MDRD equation.It is NOT the patient's actual GFR. The eGFR provides a more clinicallyuseful measure of kidney disease than serum creatinine alone.This calculation takes sex and race into account, if the informationis provided. If the race is not provided, and the patient isAfrican-Central African, multiply by 1.212. If sex is not provided, and thepatient is female, multiply by 0.742. Results for patients <18 years ofage have not been validated by the MDRD study and should be interpretedwith caution.eGFR Result Interpretation:eGFR > or = 60 is in the Normal RangeeGFR < 60 may mean kidney diseaseeGFR < 15 may mean kidney failureRanges recommended by the National Kidney Found ation,http://nkdep.nih.gov Urinalysis [id number] 10:03:00* Test Item Value Reference Range Interpretation Comments Color (test code = COLOR) Yellow Yellow,Straw,Pl yellow N Clarity (test code = CLAR) Clear Clear N Specific [place] (test code = SPGR) 1.026 1.001-1.035 N pH (test code = PH) 6.0 5.0-9.0 N Ketone (test code = KET) 5 mg/dL Negative A Glucose (test code = GLUCUR) Negative mg/dL Negative N Protein (test code = PROT) Negative mg/dL Negative N Bilirubin (test code = BILI) Negative mg/dL Negative N Occult Blood (test code = UDOB) Negative Negative N Urobilinogen (test code = UROB) 0.2 mg/dL 0.2-1.0 N Nitrite (test code = NIT) Negative Negative N Leuk Esterase (test code = LEUK) Negative Negative N Ictotest (test code = ICTOTEST) Negative Negative,Confirmed Neg ative N Clinitest (test code = CLINITEST) Not Indicated Micros Exam (test code = MEXAM) Indicated Epithelial Cells (test code = EPI) 0-2 /LPF 0-30 A WBC, Urine (test code = UWBC) 0-1 /HPF 0-5 A RBC, Urine (test code = URBC) None Seen /HPF 0-5 A Amorph Deposit (test code = AMORD) None /HPF Mucous, Urine (test code = UMUC) Trace /HPF Bacteria (test code = BACT) None /HPF Yeast (test code = YEAST) None Seen /HPF Trichomonas (test code = TRICH) None Seen /HPF Casts (test code = CASTS) None /HPF Crystals (test code = ARELIS) None /HPF CBC with [id number] 09:58:00* Test Item Value Reference Range Interpretation Comments WBC (test code = WBC) 7.8 K/cumm 4.4-10.5 N RBC (test code = RBC) 4.69 M/cumm 4.10-5.70 N Hemoglobin (test code = HGB) 13.1 gm/dL 13.4-17.4 L Hematocrit (test code = HCT) 42.4 % 38.7-52.0 N MCV (test code = MCV) 90.4 fL 80-100 N MCH (test code = MCH) 27.9 pg 27.0-32.5 N MCHC (test code = MCHC) 30.9 g/dL 32.0-37.5 L RDW (test code = RDW) 14.9 % 11.5-14.5 H Platelet Count (test code = PLTCT) 276 K/cumm 140-440 N MPV (test code = MPV) 7.9 fL Diff Method (test code = DIFFM) Auto Neutrophil (test code = NEUT) 64.8 % 36-70 N Lymphocyte (test code = LYMPH) 24.7 % 12-44 N Monocyte (test code = MONO) 7.5 % 0-11 N Eosinophil (test code = EOS) 2.7 % 0-7 N Basophil (test code = BASO) 0.3 % 0-2 N Neutro Abs (test code = ANEUT) 5.0 K/cumm 1.6-7.4 N Lymph Abs (test code = ALYMPH) 1.9 K/cumm 0.5-4.6 N [place] Abs (test code = AMONO) 0.6 K/cumm 0.0-1.2 N Eos Abs (test code = AEOS) 0.21 K/cumm 0.00-0.74 N Baso Abs (test code = ABASO) 0.0 K/cumm 0.00-0.21 N RPR, [id number] 04:20:00* Test Item Value Reference Range Interpretation Comments RPR (test code = RPR) Non-Reactive Non-Reactive N Lipid [id number] 22:48:00* Test Item Value Reference Range Interpretation Comments Cholesterol (test code = CHOL) 193 mg/dL 0-200 N Triglycerides (test code = TRIG) 71 mg/dL 9-200 N HDL (test code = HDL) 75 mg/dL 40-60 H Chol/HDL (test code = CHOLPHDL) 2.6 Ratio 0.0-5.0 N LDL, Calculated (test code = LDLC) 104 0-130 N (NOTE)RISK OF HEART DISEASEPublished by [place] African Heart AssociationAnalyte Optimal Boderline Increased RiskCHOL <200 200-239 >240TRIG <150 150-199 >200HDL Male: >60 <40HDL Female: >60 <50LDL <100 130-159 >160LDL NEAR OPTIMAL IS 100-129 VLDL (test code = VLDL) 14 mg/dL 5-40 N LDL/HDL (test code = LDLPHDL) 1 Thyroid Stimulating Hormone (TSH)2017-01-13 22:33:00* Test Item Value Reference Range Interpretation Comments TSH (test code = TSH) 2.11 mIU/mL 0.270-4.200 N Urinalysis [id number] 22:23:00* Test Item Value Reference Range Interpretation Comments Color (test code = COLOR) Yellow Yellow,Straw,Pl yellow N Clarity (test code = CLAR) Clear Clear N Specific [place] (test code = SPGR) 1.029 1.001-1.035 N pH (test code = PH) 5.0 5.0-9.0 N Ketone (test code = KET) 50 mg/dL Negative A Glucose (test code = GLUCUR) Negative mg/dL Negative N Protein (test code = PROT) 75 mg/dL Negative A Bilirubin (test code = BILI) See IctoTest mg/dL Negative A Occult Blood (test code = UDOB) Negative Negative N Urobilinogen (test code = UROB) 0.2 mg/dL 0.2-1.0 N Nitrite (test code = NIT) Negative Negative N Leuk Esterase (test code = LEUK) Negative Negative N Ictotest (test code = ICTOTEST) Confirmed Negative Negative,Conf irmed Negative N Micros Exam (test code = MEXAM) Indicated Epithelial Cells (test code = EPI) 3-5 /LPF 0-30 A WBC, Urine (test code = UWBC) 0-5 /HPF 0-5 N RBC, Urine (test code = URBC) None Seen /HPF 0-5 A Mucous, Urine (test code = UMUC) Few /HPF Bacteria (test code = BACT) None /HPF Comprehensive Metabolic [id number] 07:39:00* Test Item Value Reference Range Interpretation Comments Sodium (test code = NA) 138 mmol/L 135-145 N Potassium (test code = K) 4.0 mmol/L 3.5-5.1 N Chloride (test code = CL) 100 mmol/L 98-105 N Carbon Dioxide (test code = CO2) 26 mmol/L 22-29 N Glucose (test code = GLU) 93 mg/dL 70-115 N Blood Urea Nitrogen (test code = BUN) 25 mg/dL 6-20 H Creatinine (test code = CREAT) 1.5 mg/dL 0.7-1.2 H Calcium (test code = CA) 9.5 mg/dL 8.3-10.5 N Prot Total (test code = TP) 7.3 g/dL 6.4-8.3 N Albumin (test code = ALB) 4.9 g/dL 3.5-5.2 N A/G Ratio (test code = AGRATIO) 2.0 Ratio Globulin (test code = GLOB) 2.4 2.9-3.1 L Bili Total (test code = TBIL) 0.5 mg/dL 0.1-0.9 N Alk Phos (test code = APHOS) 50 U/L 40-129 N AST (test code = AST) 61 U/L 1-40 H ALT (test code = ALT) 26 U/L 1-41 N BUN/Creatinine Ratio (test code = BCRATIO) 16.7 Anion Gap (test code = AGAP) 12 mmol/L 7-16 N Estimated GFR (test code = GFR) >60 mL/min/1.73m2 eGFR (estimated Glomerular Filtration Rate) is an estimated value,calculated from the patient's serum creatinine using the MDRD equation.It is NOT the patient's actual GFR. The eGFR provides a more clinicallyuseful measure of kidney disease than serum creatinine alone.This calculation takes sex and race into account, if the informationis provided. If the race is not provided, and the patient isAfrican-Central African, multiply by 1.212. If sex is not provided, and thepatient is female, multiply by 0.742. Results for patients <18 years ofage have not been validated by the MDRD study and should be interpretedwith caution.eGFR Result Interpretation:eGFR > or = 60 is in the Normal RangeeGFR < 60 may mean kidney diseaseeGFR < 15 may mean kidney failureRanges recommended by the National Kidney Found ation,http://nkdep.nih.gov [id number] 07:36:00* Test Item Value Reference Range Interpretation Comments Amphetamine (test code = AMPH) POSITIVE Negative A For diagnostic purposes only, positive results should always be assessedin conjunctionwith the patient's medical history,clinical examination and otherfindings.To fulfill legal requirements, a more specific alternate chemical methodmust be used inorder to obtain a Confirmed analytical result. GC/MS is the preferred confirmatory method. Barbiturates (test code = CHRISTINE) Negative Negative N Benzodiazepine (test code = QUEENIE) Negative Negative N Cocaine (test code = COCA) POSITIVE Negative A Methadone (test code = MTHD) Negative Negative N Opiates (test code = OPIA) Negative Negative N PCP (test code = PCP) Negative Negative N Propoxyphene (test code = PROPOX) Negative Negative N THC (test code = THC) Negative Negative N Alcohol, Urine (test code = ETOHU) <0.01 g/dL 0.00-0.01 N CBC with [id number] 07:25:00* Test Item Value Reference Range Interpretation Comments WBC (test code = WBC) 8.2 K/cumm 4.4-10.5 N RBC (test code = RBC) 4.42 M/cumm 4.10-5.70 N Hemoglobin (test code = HGB) 12.8 gm/dL 13.4-17.4 L Hematocrit (test code = HCT) 38.5 % 38.7-52.0 L MCV (test code = MCV) 87.2 fL 80-100 N MCH (test code = MCH) 29.1 pg 27.0-32.5 N MCHC (test code = MCHC) 33.3 g/dL 32.0-37.5 N RDW (test code = RDW) 14.2 % 11.5-14.5 N Platelet Count (test code = PLTCT) 293 K/cumm 140-440 N MPV (test code = MPV) 8.0 fL Diff Method (test code = DIFFM) Auto Neutrophil (test code = NEUT) 64.9 % 36-70 N Lymphocyte (test code = LYMPH) 26.0 % 12-44 N Monocyte (test code = MONO) 6.5 % 0-11 N Eosinophil (test code = EOS) 2.3 % 0-7 N Basophil (test code = BASO) 0.2 % 0-2 N Neutro Abs (test code = ANEUT) 5.3 K/cumm 1.6-7.4 N Lymph Abs (test code = ALYMPH) 2.1 K/cumm 0.5-4.6 N [place] Abs (test code = AMONO) 0.5 K/cumm 0.0-1.2 N Eos Abs (test code = AEOS) 0.19 K/cumm 0.00-0.74 N Baso Abs (test code = ABASO) 0.0 K/cumm 0.00-0.21 N
--- OUTSIDE RECORDS SUMMARY | 2020-08-04 11:06 | XMS REPORT | Clinical Summary ---
Author Author [facility] Address Unknown Phone Unavailable Care Team Providers Care [facility] Specialists Name Role Phone PCP Unavailable Allergies No Known Allergies Medications Not on file Active Problems Not on file Social History Date Tobacco Use Types Packs/Day Years Used Never Assessed Sex Assigned at Date Recorded Not on file Last Filed Vital Signs Not on file Plan of Treatment Not on file Results Not on fileafter 08/04/2019 Insurance Type Payer Benefit Subscriber ID Effective Phone Address Plan / Dates Group Medicaid Contracted MEDICAID - MEDICAID [facility] [id number] [id number] CARE COMM STAR resent PLAN
[2020-08-04] MEDS ORDERED: FAMOTIDINE 20 MG/2 ML VIAL IV STA (11:18)
[2020-08-04] MEDS ORDERED: BELLADONNA ALK/PHENOBARBITAL 5 ML UDC ONE (11:29)
[2020-08-04] MEDS ORDERED: LIDOCAINE VISC 2% SOLN 15 ML UDC ONE (11:29)
[2020-08-04] MEDS ORDERED: MAGNESIUM/ALUMINUM/SIMETHICONE 30 ML UDC ONE (11:30)
[2020-08-04] MEDS ORDERED: DONNATAL/LIDOCAINE/MAALOX 30 ML SUSP PO ONE (11:30)
--- NOTE | 2020-08-04 11:46 | Diagnostic Imaging Report ---
EXAMINATION: CXR 1 VIEW - HOPD COMPARISON: None INDICATION: 2 months of epigastric pain ^epigastric pain ^[id number] ^[id number] DISCUSSION: Frontal view of the chest obtained at 1137 hours. HEART AND MEDIASTINUM: The cardiomediastinal silhouette is unremarkable. LINES: None. LUNGS: The lungs are well inflated and clear. No pneumonia or pulmonary edema. PLEURA: No pleural effusion or pneumothorax. BONES AND SOFT TISSUES: 2 well corticated ossicles in the medial right shoulder. There are surgical anchors in the left humeral head. Mild degenerative changes of the lower thoracic spine. The soft tissues are normal. IMPRESSION: No acute cardiopulmonary disease. Signed by: Dr. Tanner Arthur MD on 08/04/2020 11:43 AM
[2020-08-04] MEDS ORDERED: FAMOTIDINE 20 MG/2 ML VIAL IV ONE (11:49)
[2020-08-04] MEDS ORDERED: HYDROCODONE/APAP 5MG-325MG TAB ONE (11:49)
[2020-08-04] MEDS ORDERED: CYCLOBENZAPRINE10 MG PO (12:11)
[2020-08-04] MEDS ORDERED: HYDROCODONE/APAP 5MG-325MG TAB PO ONE (13:45)
--- NOTE | 2020-08-04 15:10 | Emergency Department Note ---
History of Present Illnes History of Present Illness Chief Complaint: Back Pain History of Present Illness This is a 59 year old male . Historian: Patient Arrival Mode: Car Grain [employer] Or [employer] Required: No Onset (how long ago): year(s) (after horse fell on him 4 years ago) Location: Low back: just to right of midline Quality: dull Radiation: Reports non-radiation Onset quality: sudden Timing of current episode: constant Progression: waxing and waning (worse last 3 months since MD changed from Jenna to Milind) Chronicity: chronic Context: Reports trauma/injury (horse fell on patient 4 years ago); Denies recent illness Relieving factors: none Exacerbating factors: none Previous service: tests performed (Had MRI of back last week, await results) Past Medical/Family History Physician Review I have reviewed the patient's past medical and family history. Any updates have been documented here. Past Medical History Recent Fever: No Clinical Suspicion of Infectio: No New/Unexplained Change in Ment: No Social History Any Illegal Drug Use: No Review of Systems Review of Systems Gastrointestinal: Reports abdominal pain (Epigastric pain "for years" due to acid and ulcers. States supposed to be taking PPI, but has not taken in months due to insurance problems. Prior EGD that showed "stomach ulcers". Has dark stool from his stomach ulcer and states his GI doc is aware. No change in dark stools.) Physical Exam Related Data Allergies: Coded Allergies: No Known Allergies (Unverified , 08/04/20) Physical Exam CONSTITUTIONAL Constitutional: Present well-developed, Present well-nourished HENT HENT: Present normocephalic, Present atraumatic, Present oropharynx clear/mo ist, Present nose normal HENT L/R: Present left ext ear normal, Present right ext ear normal EYES Eyes: Reports PERRL, Reports conjunctivae normal NECK Neck: Present ROM normal PULMONARY Pulmonary: Present effort normal, Present breath sounds normal CARDIOVASCULAR Cardiovascular: Present regular rhythm, Present heart sounds normal, Present capillary refill normal, Present normal rate GASTROINTESTINAL Abdominal: Present soft, Present bowel sounds normal, Present tender (epigastric - mild); Absent nontender, Absent distension, Absent guarding, Absent mass, Absent rebound, Absent left CVA tenderness, Absent right CVA tenderness GENITOURINARY Genitourinary: Present exam deferred SKIN Skin: Present warm, Present dry MUSCULOSKELETAL Musculoskeletal: Present ROM normal NEUROLOGICAL Neurological: Present alert, Present oriented x 3, Present no gross motor or sensory deficits PSYCHOLOGICAL Psychological: Present mood/affect normal, Present judgement normal Results Laboratory Laboratory comments UA: bili small, Glu/ket/Blood/pro/Nit/Loida negative. WBC 5.7, HCT 41.5, HGB 13.1, PLT 216, trop <0.05. Bre 100, AST44, ALT 20, Tbili 0.6, K 4.1, CL 101, Glu 76, Bun 17, Cr .0. Guiac negative. Imaging Imaging Comments CXR: Negative Procedures 12 Lead ECG Interpretation ECG Interpretation : ECG: ECG 1 G[employer]er: Interpreted by ED physician Date: Aug 04, 2020 Prior ECG tracings: other Rhythm: sinus bradycardia Rate: normal QRS axis: normal ST segments normal: Yes T waves normal: Yes Clinical Impression: normal ECG Assessment & Plan Medical Decision Making MDM Differential dx includes, but not limited to: Pancreatitis, cholelithisis, cholecystitis, SBO, AAA, constipation, viral illness, GERD, gastritis, esophagitis, UTI, Pylonephritis, kidney stone Reassessment Reassessment time: 12:04 Reassessment Stomach pain resolved after GI cocktail and pepcid. Back pain improved some with hydrocodone. Stomach and back pain both chronic. No recent change from baseline symptoms. Assessment & Plan Final Impression: (1) Low back pain of over 3 months duration (2) Chronic GERD Depart Disposition: HOME, SELF-detention Meds Active Scripts Cyclobenzaprine Hcl (CYCLOBENZAPRINE HCL) 10 Mg Tablet, 10 MG PO TID PRN for MUSCLE SPASMS, #20 TAB Prov:MARIO VAUGHN MD 08/04/20 Medications in the ED Famotidine 20 mg NOW STAT IV ; Start 08/04/20 at 11:18; Stop 08/04/20 at 11:19; Status UNV Belladonna Alkaloids/ Phenobarbital 60 ml ONCE ONCE PO ; Start 08/04/20 at 11:30; Stop 08/04/20 at 11:31; Status UNV Acetaminophen/ Hydrocodone Bitart 1 ea ONCE ONCE PO ; Start 08/04/20 at 11:30; Stop 08/04/20 at 11:31; Status UNV MARIO VAUGHN MD Aug 04, 2020 11:35
== END 2020-08-04 12:33 | disposition home or self-care (01) ==
LOC: FSED 11:03
DX: M54.5 Low back pain (principal); R10.13 Epigastric pain; K21.9 Gastro-esophageal reflux disease without esophagitis; I10 Essential (primary) hypertension; F41.9 Anxiety disorder, unspecified; G89.29 Other chronic pain
CPT/HCPCS: 71045; 80048; 80076; 81003; 82270; 82553; 84484; 85025; 93005; 99284

== ENCOUNTER → 2022-11-10 | Day surgery (SDC) | payer OTHER ==
[~2022-11-10] MED LIST: AMLODIPINE BESY10 MG PO; CYCLOBENZAPRINE10 MG PO; FENTANYL CITRATE/PF 100MCG/2 ML INJ ONE; LIDOCAINE HCL 2% LOCAL INJ 5 ML SDV VIAL INJ ONE; MIDAZOLAM HCL 2 MG/2 ML VIAL ONE; MULTI-VITAMIN1 EACH PO; OMEPRAZOLE40 MG PO; SIMVASTATIN20 MG PO; SUBOXONE 8 MG-1 EAC2 TOP; TRAZODONE HCL150 MG PO; ZOLOFT100 MG PO
[2022-11-10 10:48] LABS: BASOPHILS % 0.4 % (0.0-1.0); EOSINOPHILS # (AUTO) 0.1 (0.0-0.4); HEMATOCRIT 42.7 % (38.2-49.6); HEMOGLOBIN 13.9 g/dL (14.0-18.0); LYMPHOCYTES # (AUTO) 1.7 (1.0-3.2); LYMPHOCYTES % 34.1 % (18.0-39.1); MEAN CORPUSCULAR HEMOGLOBIN 28.9 pg (28-32); MEAN CORPUSCULAR HGB CONC 32.6 g/dL (31-35); MEAN CORPUSCULAR VOLUME 88.8 fL (81-99); MONOCYTES # (AUTO) 0.4 (0.2-0.8); MONOCYTES % 8.6 % (4.4-11.3); NEUTROPHILS # (AUTO) 2.8 (2.1-6.9); NEUTROPHILS % 55.7 % (38.7-80.0); PLATELET COUNT 252 x10e3/uL (140-360); RED BLOOD COUNT 4.81 x10e6/uL (4.3-5.7); RED CELL DISTRIBUTION WIDTH 13.3 % (11.7-14.4)
== END | disposition home or self-care (01) ==
LOC: OR 09:52
PROVIDERS: ATTEND Internal Medicine Gastroenterology
DX: Z12.11 Encounter for screening for malignant neoplasm of colon (principal); K64.8 Other hemorrhoids; K21.9 Gastro-esophageal reflux disease without esophagitis; K28.9 Gastrojejunal ulcer, unspecified as acute or chronic, without hemorrhage or perforation; B19.20 Unspecified viral hepatitis C without hepatic coma; I25.10 Atherosclerotic heart disease of native coronary artery without angina pectoris; I25.2 Old myocardial infarction; I10 Essential (primary) hypertension; E78.5 Hyperlipidemia, unspecified; R07.9 Chest pain, unspecified; F32.A Depression, unspecified; F17.210 Nicotine dependence, cigarettes, uncomplicated; Z79.899 Other long term (current) drug therapy; Z80.0 Family history of malignant neoplasm of digestive organs
CPT/HCPCS: 36415; 45378; 85025; 93005; J2001; J2250; J3010

== ENCOUNTER 2022-11-24 08:52 | Emergency (ER) | payer OTHER ==
[~2022-11-24] VITALS: Ht 172.7 cm; Wt 72.6 kg
[~2022-11-24 08:52] MED LIST changes: -FENTANYL CITRATE/PF 100MCG/2 ML INJ ONE; -LIDOCAINE HCL 2% LOCAL INJ 5 ML SDV VIAL INJ ONE; -MIDAZOLAM HCL 2 MG/2 ML VIAL ONE
[2022-11-24] MEDS ORDERED: ONDANSETRON HCL INJ 2MG/ML 2ML 2 MG/ML VIAL IV STA ×2 (09:17→10:55)
[2022-11-24] MEDS ORDERED: SODIUM CHLORIDE 0.9% 1000ML 1,000 ML IV STA (09:17)
[2022-11-24] MEDS ORDERED: SERTRALINE HCL100 MG PO (09:22)
[2022-11-24] MEDS ORDERED: LATANOPROST2.5 ML OU (09:22)
[2022-11-24] MEDS ORDERED: GABAPENTIN600 MG PO (09:22)
[2022-11-24] MEDS ORDERED: MELOXICAM7.5 MG PO (09:22)
[2022-11-24 09:47] LABS: BASOPHILS % 0.3 % (0.0-1.0); EOSINOPHILS # (AUTO) 0.1 (0.0-0.4); EOSINOPHILS % 1.2 % (0.0-6.0); HEMATOCRIT 40.8 % (38.2-49.6); HEMOGLOBIN 13.1 g/dL (14.0-18.0); LYMPHOCYTES # (AUTO) 1.7 (1.0-3.2); LYMPHOCYTES % 25.6 % (18.0-39.1); MEAN CORPUSCULAR HEMOGLOBIN 28.2 pg (28-32); MEAN CORPUSCULAR HGB CONC 32.1 g/dL (31-35); MEAN CORPUSCULAR VOLUME 87.9 fL (81-99); MONOCYTES # (AUTO) 0.6 (0.2-0.8); MONOCYTES % 8.2 % (4.4-11.3); NEUTROPHILS # (AUTO) 4.3 (2.1-6.9); NEUTROPHILS % 64.6 % (38.7-80.0); PLATELET COUNT 254 x10e3/uL (140-360); RED BLOOD COUNT 4.64 x10e6/uL (4.3-5.7); RED CELL DISTRIBUTION WIDTH 13.3 % (11.7-14.4)
[2022-11-24 10:09] LABS: ALANINE AMINOTRANSFERASE 17 IU/L (0-55); ALBUMIN 4.1 g/dL (3.5-5.0); ALBUMIN/GLOBULIN RATIO 1.3 (0.8-2.0); ALKALINE PHOSPHATASE 51 IU/L (40-150); ANION GAP 14.1 mmol/L (8-16); BLOOD UREA NITROGEN 12 mg/dL (7-26); BUN/CREATININE RATIO 9 (6-25); CALCIUM 9.7 mg/dL (8.4-10.2); CARBON DIOXIDE 24 mmol/L (22-29); CHLORIDE 106 mmol/L (98-107); CREATINE KINASE 396 IU/L (30-200); CREATININE, SERUM 1.27 mg/dL (0.72-1.25); GLUCOSE 91 mg/dL (74-118); LIPASE 21 U/L (8-78); MAGNESIUM 1.7 MG/DL (1.3-2.1); POTASSIUM 4.1 mmol/L (3.5-5.1); SODIUM 140 mmol/L (136-145)
[2022-11-24 10:30] LABS: CLARITY,URINE CLEAR (CLEAR); COLOR,URINE YELLOW (YELLOW); KETONES,URINE NEGATIVE (NEGATIVE); LEUKOCYTE ESTERASE ,URINE NEGATIVE (NEGATIVE); NITRITE,URINE NEGATIVE (NEGATIVE); PROTEIN,URINE DIPSTICK NEGATIVE (NEGATIVE); URINE UROBILINOGEN 0.2 mg/dL (0.2 - 1)
[2022-11-24 10:42] LABS: BACTERIA,URINE FEW /HPF; EPITHELIAL CELLS,URINE FEW /LPF; RBC,URINE 0-5 /HPF (0-5); WBC,URINE (MAN) 0-5 /HPF (0-5)
[2022-11-24] MEDS ORDERED: IOPAMIDOL 370 MG/ML 100 ML INFUS..BTL INJ ONE (10:45)
[2022-11-24] MEDS ORDERED: Morphine 4mg INJECTION 4 MG/ML INJ IV STA (10:55)
[2022-11-24 11:17] LABS: INR 1.1; PROTHROMBIN TIME 14.4 seconds (11.9-14.5)
[2022-11-24 11:18] LABS: PARTIAL THROMBOPLASTIN TIME 30.3 seconds (23.8-35.5)
[2022-11-24] MEDS ORDERED: ONDANSETRON ODT4 MG PO (12:30)
[2022-11-24] MEDS ORDERED: DICYCLOMINE HCL20 MG PO (12:30)
[2022-11-24 12:50] VITALS: BP 155/89
== END 2022-11-24 13:00 | disposition home or self-care (01) ==
LOC: ER 08:56
DX: R10.13 Epigastric pain (principal); K52.9 Noninfective gastroenteritis and colitis, unspecified; K21.9 Gastro-esophageal reflux disease without esophagitis; M54.9 Dorsalgia, unspecified; G89.29 Other chronic pain; Z20.822 Contact with and (suspected) exposure to COVID-19; F17.210 Nicotine dependence, cigarettes, uncomplicated
CPT/HCPCS: 0223U; 36415; 71045; 74177; 80053; 81001; 82270; 82550; 82553; 83690; 83735; 84484; 85025; 85610; 85730; 93005; 99284; C9113; J2270; J2405; J7030; Q9967

== ENCOUNTER → 2022-12-18 | Outpatient (CLI) | payer OTHER ==
[~2022-12-18] MED LIST changes: +DICYCLOMINE HCL20 MG PO; +GABAPENTIN600 MG PO; +LATANOPROST2.5 ML OU; +MELOXICAM7.5 MG PO; +ONDANSETRON ODT4 MG PO; +SERTRALINE HCL100 MG PO
== END ==
LOC: US 08:34
PROVIDERS: ATTEND Internal Medicine Gastroenterology
DX: B19.20 Unspecified viral hepatitis C without hepatic coma (principal)
CPT/HCPCS: 76705